=== PATIENT | female | born 1995 | race Caucasian/White ===

== ENCOUNTER 2021-04-05 11:30 | Outpatient (REF) | payer MEDICAID, SELFPAY ==
--- NOTE | ~2021-04-05 | XR_ITS ---
EXAMINATION: XR HAND, LEFT CLINICAL INFORMATION: Puncture wound anterior to first metacarpal joint without foreign body COMPARISON: None TECHNIQUE: Three views of the left hand. FINDINGS: The bones and soft tissues are normal. No fracture. Alignment is anatomic. Joint spaces are maintained. No erosions or soft tissue calcifications. XR/XR hand LT min 3V IMPRESSION: Normal left hand.
== END 2021-04-05 11:31 | disposition home or self-care (01) ==
LOC: HO.HMGCX 11:30
PROVIDERS: PCP Internal Medicine; Visit Provider Physician Assistant Medical
DX: S61.432A Puncture wound without foreign body of left hand, initial encounter (principal)
CPT/HCPCS: 73130

== ENCOUNTER → 2021-04-12 10:43 | Outpatient (BNVA) | payer MEDICAID, SELFPAY | PROVIDERS: PCP Internal Medicine; Visit Provider Physician Assistant | DX: S61.432A Puncture wound without foreign body of left hand, initial encounter (principal) | CPT/HCPCS: 99202 ==

== ENCOUNTER 2022-03-20 12:12 | Emergency (ER) | payer OTHER, SELFPAY ==
[2022-03-20 12:40] VITALS: BP 120/71; PULSE 81; RESP 18; TEMP 36.6; O2SAT 98; BMI 34.3
--- NOTE | 2022-03-20 12:40 | ED.GENADULT ---
HPI - General Adult General Chief complaint: Dental/Oral <PAYAL Narayan - Last Filed: 03/20/22 12:42> Stated complaint: Facial swelling/Needs IV antibiotic <PAYAL Narayan - Last Filed: 03/20/22 12:42> Time Seen by Provider: 03/20/22 14:55 <PAYAL Narayan - Last Filed: 03/20/22 12:42> Source: patient <Ingris Mark MD - Last Filed: 03/20/22 15:48> Mode of arrival: ambulatory <Ingris Mark MD - Last Filed: 03/20/22 15:48> History of Present Illness HPI narrative: 26-year-old female who presents with left-sided facial swelling but she states has started due to needing a root canal at the left upper molars, she states that her dentist ?ground them down? and then yesterday patient developed pain and she was started on clindamycin 100 mg but patient states that she has had increased swelling at the left side of her face without fever or chills but involving the left eye. Patient otherwise denies any difficulty swallowing or breathing at this time. <Ingris Mark MD - Last Filed: 03/20/22 15:48> Related Data Home medications: Previous Rx's Medication Instructions Recorded amoxicillin 875 mg-potassium 1 tab PO Q12H 7 days #14 tabs 04/05/21 clavulanate 125 mg tablet (Augmentin) ibuprofen 600 mg tablet 600 mg PO Q8H PRN pain #30 tabs 04/05/21 amoxicillin 875 mg-potassium 1 tab PO BID 5 days #10 tabs 03/20/22 clavulanate 125 mg tablet <PAYAL Narayan - Last Filed: 03/20/22 12:42> Allergies/adverse reactions: Allergies Allergy/AdvReac Type Severity Reaction Status Date / Time acetaminophen [From PERCOCET] Allergy Intermediate ITCHING Unverified 04/05/21 11:13 oxycodone [From PERCOCET] Allergy Intermediate ITCHING Unverified 04/05/21 11:13 <PAYAL Narayan - Last Filed: 03/20/22 12:42> Review of Systems Review of Systems: Pertinent positives and negatives as stated in HPI <Ingris Mark MD - Last Filed: 03/20/22 15:48> [facility] Past Medical History Source: nursing notes reviewed <Ingris Mark MD - Last Filed: 03/20/22 15:48> Social History Social History: Social History Advance Directives: No Advance Directives Information Provided: Yes Current occupational status: employed Current occupation: rt handed/construction <PAYAL Narayan - Last Filed: 03/20/22 12:42> Physical Exam ED Vital Signs: Vital Signs - 24 hr 03/20/22 12:40 Temperature 98 F Pulse Rate 81 Respiratory Rate 18 Blood Pressure 120/71 Pulse Oximetry 98 BMI result Body Mass Index 34.3 <PAYAL Narayan - Last Filed: 03/20/22 12:42> Vital Signs - 24 hr 03/20/22 12:40 Temperature 98 F Pulse Rate 81 Respiratory Rate 18 Blood Pressure 120/71 Pulse Oximetry 98 BMI result Body Mass Index 34.3 VITAL SIGNS: Reviewed. GENERAL: Well developed, well nourished, in no acute distress. HEAD: Normocephalic/atraumatic EYES: PERRLA, EOMI , soft tissue swelling noted at the periorbital, no pain on extraocular movement and no conjunctival injection EARS: Ext canals without abnormality, TMs non-bulging and non-erythematous NOSE: Nares patent bilateral OROPHARYNX: no oral lesions noted, posterior pharynx clear, no gingival swelling noted but there is significant soft tissue swelling of the buccal cheek, no trismus and no pooling of saliva NECK: Supple, no adenopathy LUNGS: Normal breath sounds. No adventitious sounds or accessory muscle use. SpO2<> CARDIOVASCULAR: Regular rate and rhythm without noted murmurs ABDOMEN: Soft, non-tender, non-distended with bowel sounds. MUSCULOSKELETAL: No tenderness, deformities, or effusions noted on gross inspection. EXTREMITIES: No cyanosis, clubbing or edema. SKIN: Inspection of the skin reveals no rashes NEUROLOGIC: Alert and oriented x 4. Strength and sensation to light touch were grossly intact x 4. <Ingris Mark MD - Last Filed: 03/20/22 15:48> Course Course Course Narrative: RME - 26 yo female presents to the ER from the Dentist office for evaluation of worsening dental abscess and possible IV antibitoics. Unable to drain it at the dentist. Started on Clinda yesterday with worsening symptoms. They recommend IV abx per Mom. VSS. Will get labs and CT scan for further evaluation. <PAYAL Narayan - Last Filed: 03/20/22 12:42> Medications Administered Discontinued Medications Generic Name Dose Route Start Last Admin Trade Name Freq PRN Reason Stop Dose Admin Acetaminophen 975 mg 03/20/22 15:04 03/20/22 15:29 Acetaminophen 325 Mg Tablet PO 03/20/22 15:05 975 mg ONCE ONE Administration Amoxicillin/Clavulanate Potassium 875 mg 03/20/22 15:04 03/20/22 15:30 Amoxicillin/Potassium Clav 875 Mg Tablet PO 03/20/22 15:05 875 mg ONCE ONE Administration Ketorolac Tromethamine 15 mg 03/20/22 15:04 03/20/22 15:30 Ketorolac Tromethamine 30 Mg/Ml Vial IVPUSH 03/20/22 15:05 15 mg ONCE ONE Administration <PAYAL Narayan - Last Filed: 03/20/22 12:42> Medications Administered Discontinued Medications Generic Name Dose Route Start Last Admin Trade Name Freq PRN Reason Stop Dose Admin Acetaminophen 975 mg 03/20/22 15:04 03/20/22 15:29 Acetaminophen 325 Mg Tablet PO 03/20/22 15:05 975 mg ONCE ONE Administration Amoxicillin/Clavulanate Potassium 875 mg 03/20/22 15:04 03/20/22 15:30 Amoxicillin/Potassium Clav 875 Mg Tablet PO 03/20/22 15:05 875 mg ONCE ONE Administration Ketorolac Tromethamine 15 mg 03/20/22 15:04 03/20/22 15:30 Ketorolac Tromethamine 30 Mg/Ml Vial IVPUSH 03/20/22 15:05 15 mg ONCE ONE Administration <Ingris Mark MD - Last Filed: 03/20/22 15:48> Medical Decision Making Medical Decision Making MDM Narrative: 26-year-old female with suspected dental infection, no systemic symptoms and very conservative approach to antibiotics, will provide patient with combination analgesics and switch from clindamycin over to Augmentin as patient has no allergies to that antibiotic. No evidence to suggest peritonsillar abscess or cellulitis. On my review of the workup my interpretation is that patient has mild facial cellulitis secondary to ongoing dental issues there is not appear to be any acute orbital cellulitis, facial abscess/gingival abscess. Patient will be treated with more aggressive approach to antibiotics with short follow-up. <Ingris Mark MD - Last Filed: 03/20/22 15:48> Differential Diagnosis Differential Diagnoses: The differential diagnosis associated with the presentation includes <Ingris Mark MD - Last Filed: 03/20/22 15:48> Please see discussion above <Ingris Mark MD - Last Filed: 03/20/22 15:48> Lab Data MDM Lab Attestation statement: I reviewed the patient's lab results. <Ingris Mark MD - Last Filed: 03/20/22 15:48> Please see the discussion above <Ingris Mark MD - Last Filed: 03/20/22 15:48> Result Diagrams: 03/20/22 13:09 03/20/22 13:09 <PAYAL Narayan - Last Filed: 03/20/22 12:42> Labs: Lab Results 03/20/22 03/20/22 03/20/22 Range/Units 13:09 13:09 13:09 WBC 8.7 (4.8-10.8) X10*3/uL RBC 4.66 (4.20-5.50) X10*6/uL Hgb 13.2 (12.0-16.0) g/dl Hct 40.0 (37.0-47.0) % MCV 85.8 (80.0-98.0) fL MCH 28.3 (27.0-33.0) pg MCHC 33.0 (31.0-35.0) g/dl RDW 13.2 (11.0-16.0) % Plt Count 209 (160-400) X10*3/uL MPV 10.5 (9.4-12.3) fL Immature Gran % (Auto) 0.2 (0.0-0.4) % Neut % (Auto) 67.8 (45-73) % Lymph % (Auto) 19.0 L (20-40) % Shannon % (Auto) 11.4 H (2-11) % Eos % (Auto) 1.3 (0-4) % Baso % (Auto) 0.3 (0-2) % Lymph # (Auto) 1.6 (1.2-4.9) X10*3/uL Shannon # (Auto) 1.0 (0.1-1.2) X10*3/uL Eos # (Auto) 0.1 (0.0-0.4) X10*3/uL Baso # (Auto) 0.0 (0.0-0.2) X10*3/uL Abs Immat Gran (auto) 0.02 (0.00-0.03) X10*3/uL Absolute Neuts (auto) 5.9 (2.0-8.3) x10*3/uL Absolute Nucleated RBC 0.000 (0.0-0.012) X10*3/uL Nucleated RBC % (auto) 0.0 (0.0-0.2) /100WBC Sodium 139 (135-145) mmol/L Potassium 3.9 (3.3-5.1) mmol/L Chloride 107 (96-108) mmol/L Carbon Dioxide 25 (22-29) mmol/L Anion Gap 11 L (12-20) BUN 11 (9-16) mg/dL Creatinine 0.79 (0.5-1.4) mg/dL Estim Creat Clear Calc 117.7 Estimated GFR > 60 Random Glucose 103 (60-115) mg/dL Calcium 9.0 (8.4-10.2) mg/dL Magnesium 1.9 (1.6-2.6) mg/dL Total Bilirubin 0.4 (0.0-1.0) mg/dL Direct Bilirubin < 0.2 (0.0-0.5) mg/dL AST 12 (5-31) U/L ALT 10 (0-31) U/L Alkaline Phosphatase 40 (39-117) U/L Total Protein 6.4 L (6.5-8.0) g/dL Albumin 4.0 (3.5-5.0) g/dL COVID-19 (ISAC) Negative (Negative) COVID-19 Clin Com See Note <PAYAL Narayan - Last Filed: 03/20/22 12:42> Lab Results 03/20/22 03/20/22 03/20/22 Range/Units 13:09 13:09 13:09 WBC 8.7 (4.8-10.8) X10*3/uL RBC 4.66 (4.20-5.50) X10*6/uL Hgb 13.2 (12.0-16.0) g/dl Hct 40.0 (37.0-47.0) % MCV 85.8 (80.0-98.0) fL MCH 28.3 (27.0-33.0) pg MCHC 33.0 (31.0-35.0) g/dl RDW 13.2 (11.0-16.0) % Plt Count 209 (160-400) X10*3/uL MPV 10.5 (9.4-12.3) fL Immature Gran % (Auto) 0.2 (0.0-0.4) % Neut % (Auto) 67.8 (45-73) % Lymph % (Auto) 19.0 L (20-40) % Shannon % (Auto) 11.4 H (2-11) % Eos % (Auto) 1.3 (0-4) % Baso % (Auto) 0.3 (0-2) % Lymph # (Auto) 1.6 (1.2-4.9) X10*3/uL Shannon # (Auto) 1.0 (0.1-1.2) X10*3/uL Eos # (Auto) 0.1 (0.0-0.4) X10*3/uL Baso # (Auto) 0.0 (0.0-0.2) X10*3/uL Abs Immat Gran (auto) 0.02 (0.00-0.03) X10*3/uL Absolute Neuts (auto) 5.9 (2.0-8.3) x10*3/uL Absolute Nucleated RBC 0.000 (0.0-0.012) X10*3/uL Nucleated RBC % (auto) 0.0 (0.0-0.2) /100WBC Sodium 139 (135-145) mmol/L Potassium 3.9 (3.3-5.1) mmol/L Chloride 107 (96-108) mmol/L Carbon Dioxide 25 (22-29) mmol/L Anion Gap 11 L (12-20) BUN 11 (9-16) mg/dL Creatinine 0.79 (0.5-1.4) mg/dL Estim Creat Clear Calc 117.7 Estimated GFR > 60 Random Glucose 103 (60-115) mg/dL Calcium 9.0 (8.4-10.2) mg/dL Magnesium 1.9 (1.6-2.6) mg/dL Total Bilirubin 0.4 (0.0-1.0) mg/dL Direct Bilirubin < 0.2 (0.0-0.5) mg/dL AST 12 (5-31) U/L ALT 10 (0-31) U/L Alkaline Phosphatase 40 (39-117) U/L Total Protein 6.4 L (6.5-8.0) g/dL Albumin 4.0 (3.5-5.0) g/dL COVID-19 (ISAC) Negative (Negative) COVID-19 Clin Com See Note <Ingris Mark MD - Last Filed: 03/20/22 15:48> External Record Review External record reviewed: Outpatient record and Prior outpatient labs <Ingris Mark MD - Last Filed: 03/20/22 15:48> Discharge Plan Discharge Clinical Impression: Cellulitis of face <PAYAL Narayan - Last Filed: 03/20/22 12:42> Patient Disposition: Home, Self-Care <PAYAL Narayan - Last Filed: 03/20/22 12:42> Instructions: Cellulitis (ED) <PAYAL Narayan - Last Filed: 03/20/22 12:42> Additional Instructions: 1. Please complete the entire course of antibiotics as ordered. 2. Recommend [id number] Tylenol/ibuprofen as needed for pain control. You may also use an ice pack to unexposed skin for additional symptom relief. Return to the ER for worsening symptoms. <PAYAL Narayan - Last Filed: 03/20/22 12:42> Prescriptions: New amoxicillin-pot clavulanate 875-125 mg tablet 1 tab PO BID 5 Days Qty: 10 0RF No Action amoxicillin-pot clavulanate [Augmentin] 875-125 mg tablet 1 tab PO Q12H 7 Days Qty: 14 0RF ibuprofen 600 mg tablet 600 mg PO Q8H PRN (Reason: pain) Qty: 30 0RF <PAYAL Narayan - Last Filed: 03/20/22 12:42> Referrals: Juliette Lombardo DO [Primary Care Provider] - <PAYAL Narayan - Last Filed: 03/20/22 12:42> Stand Alone Forms: Work/School Release <PAYAL Narayan - Last Filed: 03/20/22 12:42>
[2022-03-20 13:14] LABS: MANUAL DIFF FLAG NO
[2022-03-20 13:17] LABS: Basophils Percent Auto 0.3 % (0-2); Eosinophils Absolute Auto 0.1 X10*3/uL (0.0-0.4); Eosinophils Percent Auto 1.3 % (0-4); Hemoglobin 13.2 g/dl (12.0-16.0); Imm Gran Abs Auto 0.02 X10*3/uL (0.00-0.03); Imm Gran Pct Auto 0.2 % (0.0-0.4); Lymphocytes Absolute Auto 1.6 X10*3/uL (1.2-4.9); Mean Corpuscular Hemoglobin 28.3 pg (27.0-33.0); Mean Corpuscular Volume 85.8 fL (80.0-98.0); Mean Platelet Volume 10.5 fL (9.4-12.3); Monocytes Percent Auto 11.4 % (2-11); Neutrophils Absolute Auto 5.9 x10*3/uL (2.0-8.3); Neutrophils Percent Auto 67.8 % (45-73); Platelet Count 209 X10*3/uL (160-400); Red Blood Count 4.66 X10*6/uL (4.20-5.50); Red Cell Distribution Width 13.2 % (11.0-16.0); White Blood Count 8.7 X10*3/uL (4.8-10.8)
[2022-03-20 13:51] LABS: COVID-19 Test Negative (Negative); IDNOW Serial# 16C4AD1C
[2022-03-20 13:53] LABS: Alanine Aminotransferase 10 U/L (0-31); Alkaline Phosphatase 40 U/L (39-117); Anion Gap 11 (12-20); Aspartate Amino Transferase 12 U/L (5-31); Bilirubin Direct < 0.2 mg/dL (0.0-0.5); Bilirubin Total 0.4 mg/dL (0.0-1.0); Blood Urea Nitrogen 11 mg/dL (9-16); Carbon Dioxide 25 mmol/L (22-29); Chloride 107 mmol/L (96-108); Creatinine Clr Calc Pharmacy 117.7; Estimated Glomerular Filt Rate > 60; Glucose Random 103 mg/dL (60-115); Magnesium 1.9 mg/dL (1.6-2.6); Potassium 3.9 mmol/L (3.3-5.1); Sodium 139 mmol/L (135-145); Total Protein 6.4 g/dL (6.5-8.0)
[2022-03-20] MEDS: Acetaminophen 325 MG TABLET 975 MG PO (15:29)
[2022-03-20] MEDS: Ketorolac Tromethamine 30 MG/ML VIAL 15 MG IVPUSH (15:30)
[2022-03-20] MEDS: Amoxicillin/Potassium Clav 875 MG TABLET PO (15:30)
== END 2022-03-20 16:03 | disposition home or self-care (01) ==
PROVIDERS: Physician Assistant; Emergency Provider Student in an Organized Health Care Education/Training Program; PCP Student in an Organized Health Care Education/Training Program
DX: L03.211 Cellulitis of face (principal); K08.89 Other specified disorders of teeth and supporting structures; Z20.822 Contact with and (suspected) exposure to COVID-19
CPT/HCPCS: 80048; 80076; 83735; 85025; 87635; 96374; 99283; 99284; J1885